=== PATIENT | female | born 1970 | race Caucasian/White ===

== ENCOUNTER 2019-06-18 00:36 | Emergency (ER) | payer OTHER ==
[2019-06-18 00:43] VITALS: BP 155/82; PULSE 80; TEMP 97.5; BMI 24.2
--- NOTE | 2019-06-18 01:32 | PDOC ---
Attending Attestation - Resident Resident Name: Penelope Underwood - ED Attending Attestation I have performed the following: I have examined & evaluated the patient, The case was reviewed & discussed with the resident, I agree w/resident's findings & plan - HPI HPI: 06/18/19 02:37 Pt comes with eye pain and pain around the orbits. She has no vision changes. She has slight headaches. She states that she fell 2 mos ago and hit her head. She never had it checked out. She has no fever or chills. She has no nausea or vomiting. She says that she has no job; no exposure to chemicals. Pt has no dizziness States that she has not been sleeping well. She may have had a concussion. - Physicial Exam PE: 06/18/19 02:49 Normal exam No sinus tenderness with palpation. HEENT normal PERRLA Retinas appear normal Heart and lungs normal abd normal flank no pain Neuro intact - Medical Decision Making 06/18/19 03:56 Pt will get a head CT to evaluate her brain after the fall. She also may have something brewing around the eyes, a sinusitis type of issue that is causing facial and particularly eye discomfort. 06/18/19 06:40 Patient Name: ADOLPH MIDDLETON THIS IS A PRELIMINARY REPORT FROM [facility] DATE OF SERVICE: 2019-06-18 04:31:59 IMAGES: 230 EXAM: HEAD CT WITHOUT CONTRAST HISTORY: Headache and eye pain COMPARISON: None. FINDINGS: The ventricular system is midline and nondilated. The sulcal pattern is normal for the patient's age. There is no bleed, mass, extra-axial fluid collection or mass effect. No skull fracture or skull lesion is identified. The visualized paranasal sinuses and mastoid air cells are clear. IMPRESSION: Normal exam. 06/18/19 06:40 Pt is stable to go home.
--- NOTE | 2019-06-18 01:53 | PDOC ---
History of Present Illness - General Chief Complaint: Cold Symptoms Stated Complaint: COUGH/SORE THROAT Time Seen by Provider: 06/18/19 01:28 History Source: Patient Exam Limitations: Language Barrier - History of Present Illness Initial Comments: 06/18/19 01:53 48y F with no significant PMH presenting to ED with complaints of burning/itchy eyes x2 weeks, dry throat for a few months. Pt states that her throat feels dry and she feels like food gets stuck when she eats and feels short of breath. She had workup done at [facility] with imaging which have all been negative. She states that her eyes feel like a burning but she has not tried anything for it. Also endorses a dry cough. Denies chest pain, headache, back pain, abdominal pain, n/ v/d, fevers chills. She fell 2 weeks ago and hit the back of her head. Denies bleeding, syncope. Past History - Past Medical History Allergies/Adverse Reactions: Allergies Allergy/AdvReac Type Severity Reaction Status Date / Time No Known Allergies Allergy Verified 06/18/19 00:43 Home Medications: Ambulatory Orders Fluticasone Propionate [Flonase Allergy Relief] 9.9 ml NS DAILY 30 Days #1 spray.susp 06/18/19 Melatonin 10 mg PO HS #30 capsule 06/18/19 COPD: No - Psycho Social/Smoking Cessation Hx Smoking History: Never smoked Hx Alcohol Use: No Drug/Substance Use Hx: No Review of Systems - Review of Systems Constitutional: No: Symptoms Reported HEENTM: Yes: See HPI Respiratory: Yes: See HPI Cardiac (ROS): No: Symptoms Reported ABD/GI: No: Symptoms Reported : No: Symptoms Reported Musculoskeletal: No: Symptoms Reported Integumentary: No: Symptoms Reported Neurological: No: Symptoms reported *Physical Exam - Vital Signs Last Vital Signs Temp Pulse Resp BP Pulse Ox 97.5 F L 80 18 155/82 99 06/18/19 00:38 06/18/19 00:38 06/18/19 00:38 06/18/19 00:38 06/18/19 00:38 - Physical Exam General Appearance: Yes: Nourished, Appropriately Dressed. No: Apparent Distress HEENT: positive: EOMI, ANJELICA, Normal ENT Inspection, TMs Normal, Pharynx Normal, Other (OU . no lid lacerations, no abrasions, no photophobia.). negative: Pale Conjunctivae, Scleral Icterus (R), Scleral Icterus (L) Neck: positive: Trachea midline, Supple. negative: Tender, Lymphadenopathy (R) , Lymphadenopathy (L), Tender midline Respiratory/Chest: positive: Lungs Clear, Normal Breath Sounds. negative: Crackles, Rales, Rhonchi, Stridor, Wheezing Cardiovascular: positive: Regular Rhythm, Regular Rate, S1, S2. negative: Edema , JVD, Murmur Vascular Pulses: Dorsalis-Pedis (R): 2+, Doralis-Pedis (L): 2+ Gastrointestinal/Abdominal: positive: Normal Bowel Sounds, Soft. 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 vitals wnl suspect seasonal allergies/cold. does not require labs at this time. due to injury, will obtain head ct. head ct negative. pt ambulatory, no acute distress. will give claritin. dc with melatonin (pt is having difficulty sleeping) and nasal spray for congestion and cough (suspect post nasal drip). pt agrees with plan referral to ent and ophtho. Discharge - Discharge Information Problems reviewed: Yes Clinical Impression/Diagnosis: Itchy eyes, Dry throat Condition: Good Disposition: HOME - Admission No - Additional Discharge Information Prescriptions: Fluticasone Propionate [Flonase Allergy Relief] 9.9 ml NS DAILY 30 Days #1 spray.susp Melatonin 10 mg PO HS #30 capsule - Follow up/Referral Referrals: ON STAFF,NOT [Primary Care Provider] - Iftikhar Lee MD [Staff Physician] - Fabiana Nicolas MD [Staff Physician] - - Patient Discharge Instructions Additional Instructions: The CT was normal. I do not know the cause of your symptoms but it could be allergies. I recommend taking Claritin every day, this will help with the eyes, congestion and dry throat. You can also use saline nasal spray to help with congestion and artificial tears to help with the burning of the eyes. I recommend follow up with an ENT doctor (Dr. Lee) and ophthalmology (Dr. Nicolas) Come back to the emergency room if you have changes in your vision, have chest pain, feel short of breath or if any new or concerning symptom develops. Thank you - Post Discharge Activity
[2019-06-18] MEDS ORDERED: LORATADINE 10 MG TABLET PO ONE (02:09)
[2019-06-18] MEDS ORDERED: LORATADINE 10 MG TABLET ONE (02:45)
[2019-06-18] MEDS ORDERED: IBUPROFEN 600 MG TABLET (FP) PO ONE ×2 (03:53→04:26)
== END 2019-06-18 06:50 | disposition home or self-care (01) ==
LOC: JER 00:36
DX: J39.2 Other diseases of pharynx (principal); H57.89 Other specified disorders of eye and adnexa
CPT/HCPCS: 70450-TC; 99284-25